=== PATIENT | male | born 1940 | race Caucasian/White ===

== ENCOUNTER → 2017-12-22 | Outpatient (CLI) | payer MEDICARE, BC ==
[~2017-12-22] MED LIST: AMIODARONE HCL200 MG PO; ANTACID200 MG PO; BUPROPION HCL100 MG PO; CYCLOBENZAPRINE5 MG PO; EDLUAR5 MG PO; ELIQUIS PO; LOSARTAN POTASS25 MG PO; METOPROLOL TART25 MG PO; SIMVASTATIN20 MG PO; TIZANIDINE HCL4 MG PO; TOPIRAMATE100 MG PO; XANAX0.25 MG PO; ZETIA10 MG PO
--- NOTE | 2017-12-22 14:54 | Diagnostic Imaging Report ---
Examination: Nonvascular extremity ultrasound, anterior chest wall Comparison examination: None Clinical history: Status post fall, concern for hematoma Technique: Multiple transverse and longitudinal sonographic images of the area of interest in the presternal soft tissues were obtained with supplemental color Doppler analysis. Findings: Sonographic evaluation of the presternal region shows no evidence of discrete fluid collection or mass lesion. Impression: No discrete soft tissue hematoma or mass lesion in the area of interest. Signed by: Dr. Yunior Kebede M.D. on 12/22/2017 2:51 PM
== END ==
LOC: US 13:37
PROVIDERS: ATTEND Internal Medicine
DX: S20.219A Contusion of unspecified front wall of thorax, initial encounter (principal); W19.XXXA Unspecified fall, initial encounter
CPT/HCPCS: 76882

== ENCOUNTER → 2020-08-21 | Outpatient (CLI) | payer MEDICARE, BC | LOC: MRI 09:36 | PROVIDERS: ATTEND Student in an Organized Health Care Education/Training Program | DX: F07.81 Postconcussional syndrome (principal); H53.2 Diplopia | CPT/HCPCS: 70551 ==